=== PATIENT | male | born 2005 | race Caucasian/White ===

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

== ENCOUNTER 2023-07-08 05:17 | Inpatient (IN) | payer OTHER ==
[2023-07-08] VITALS (208 sets, daily range): BP systolic 99–124; BP diastolic 61–90; PULSE 73–94; TEMP 97.7–98.6; O2SAT 83–100
[~2023-07-08] VITALS: Ht 182.9 cm; Wt 76.8 kg
[~2023-07-08 05:17] MED LIST changes: +AMOXICILLIN 50500 MG PO; +AMOXICILLIN 8751 TAB PO; +NORCO 325 MG-51 TAB PO
[2023-07-08 05:30] LABS: BASO % 0.3 % (0.0-2.0); EOS % 0.6 % (0.0-4.0); GRAN # 3.5 K/mm3 (1.4-6.5); GRAN % 49.1 % (42.2-75.2); HEMATOCRIT 43.8 % (36.0-47.0); HEMOGLOBIN 14.9 g/dl (12.5-16.1); LYMPH % 42.4 % (20.0-51.0); MEAN CELL VOLUME 92 fl (80.0-95.0); MEAN CORPUSCULAR HEMOGLOBIN 31 pg (26-32); MEAN CORPUSCULAR HGB CONC 34 g/dl (33.0-37.0); MEAN PLATELET VOLUME 9.6 fl (7.4-10.4); MONO # 0.5 K/mm3 (0.1-0.6); MONO % 6.9 % (1.7-9.3); PLATELET COUNT 235 K/mm3 (130-400); RED BLOOD COUNT 4.76 M/mm3 (4.20-5.60)
[2023-07-08] MEDS ORDERED: Furosemide 100 MG/10 ML VIAL IV ONE (05:30)
[2023-07-08] MEDS ORDERED: methylPREDNISolone Sod Succ 125 MG/2 ML VIAL IV ONE (05:30)
[2023-07-08 05:42] LABS: ARTERIAL BLD GAS TCO2 CT 24.5; ARTERIAL BLOOD GAS BASE EXCESS -4.4 (-2-2); ARTERIAL BLOOD GAS HCO3 22.9 meq/L (22-26); ARTERIAL BLOOD GAS PCO2 50.3 mmHg (35-45); ARTERIAL BLOOD GAS PO2 51.4 mmHg (80-100); ARTERIAL BLOOD GAS pH 7.28 (7.35-7.45)
[2023-07-08] MEDS ORDERED: Ondansetron 4 MG/2 ML VIAL IV ONE (05:45)
[2023-07-08] MEDS ORDERED: Naloxone 0.4 MG/ML VIAL IV ONE (05:45)
[2023-07-08 05:47] LABS: ACETAMINOPHEN < 7.0 ug/mL (10-30); ALANINE AMINOTRANSFERASE 33 U/L (0-55); ALBUMIN 3.8 gm/dL (3.5-5.0); ALKALINE PHOSPHATASE 77 U/L (40-150); ANION GAP 12 mmol/L (7-16); AST,SGOT 34 U/L (5-34); BILIRUBIN,TOTAL 0.3 mg/dL (0.2-1.2); BLOOD UREA NITROGEN 11 mg/dL (8-21); CALCIUM 8.7 mg/dL (8.4-10.2); CARBON DIOXIDE 22 mmol/L (22-29); CHLORIDE 106 mmol/L (98-107); CREATININE, serum 1.14 mg/dL (0.72-1.25); GLUCOSE 239 mg/dL (70-99); POTASSIUM 3.7 mmol/L (3.5-4.5); SODIUM 140 mmol/L (136-145); TOTAL PROTEIN 6.8 gm/dL (6.2-8.1)
[2023-07-08 05:49] LABS: ALCOHOL(ethanol),MEDICAL < 10 mg/dL (0-10); SALICYLATE < 5.0 mg/dL (15.0-30.0)
[2023-07-08 05:55] LABS: TROPONIN-I < 0.010 ng/mL (0.00-0.033)
--- NOTE | 2023-07-08 06:12 | NUR ---
RT CALLED TO ER TO EVALUATE PT AT 0522. RT PLACED PT ON BIPAP, 08/10 R 20 100%. ABG OBTAINED. RT TO ASSIST RN TO CT. ORDERS TO OBTAIN ANOTHER ABG IN 30 MINUTES.
[2023-07-08 06:40] LABS: COLLECTION METHOD CLEAN CATCH
[2023-07-08 07:05] LABS: PH 5.5 (5.0-8.5); URINE APPEARANCE CLEAR (CLEAR/HAZY); URINE BLOOD NEGATIVE (NEGATIVE); URINE COLOR YELLOW (YELLOW); URINE GLUCOSE NEGATIVE (NEGATIVE); URINE KETONE NEGATIVE (NEGATIVE); URINE NITRATE NEGATIVE (NEGATIVE); URINE PROTEIN(semi-quant) NEGATIVE (NEGATIVE); URINE UROBILINOGEN 0.2 E.U/dL (0.2-1.0)
[2023-07-08 07:17] LABS: TRICYCLIC ANTIDEPRESS URINE NEGATIVE (NEGATIVE)
[2023-07-08] MEDS ORDERED: Albuterol/Ipratropium 3 MG-0.5 MG/3 ML Neb Soln IH PRN (09:30)
--- NOTE | 2023-07-08 09:30 | NUR ---
polysilicon preparation worker spoke with Officer Love who reports pt will remain and is currently in police custody. SW will follow for any needs or changes in status. Discharge Plan: return to snf
--- NOTE | 2023-07-08 09:36 | NUR ---
HEAD TO TOE ASSESSMENT COMPLETED. PATIENT IS IN POLICE CUSTODY AND HAS SUBASSEMBLY SUPERVISOR AT BEDSIDE WITH HIM. PATIENT'S ANKLES ARE SHACKLED AND HAS A BELLY CUFF WITH ONE ARM ATTACHED. PATIENT REMAINS ON BIPAP. PATIENT WAKES TO VERBAL STIMULI AND IS ABLE TO ANSWER QUESTIONS APPROPRIATELY. HEART SOUNDS REGULAR WITH S1 AND S2 NOTED. LUNG SOUNDS ARE DIMINISHED THROUGHOUT WITH COARSE CRACKLES NOTED. PULSES PRESENT BILATERALLY IN UPPER AND LOWER EXTREMITIES. PATIENT IS ABLE TO VOID USING THE URINAL. NO PAIN NOTED AT THIS TIME. BED IN A LOW POSITION. CALL LIGHT WITHIN REACH. SUBASSEMBLY SUPERVISOR AT BEDSIDE AND ALSO EDUCATED RUBBER PROCESS HAND LIGHT.
[2023-07-08 09:39] LABS: ARTERIAL BLD GAS O2 SATURATION 98.2 % (92-100); ARTERIAL BLD GAS TCO2 CT 24.4; ARTERIAL BLOOD GAS BASE EXCESS -1.9 (-2-2); ARTERIAL BLOOD GAS HCO3 23.2 meq/L (22-26); ARTERIAL BLOOD GAS PCO2 40.7 mmHg (35-45); ARTERIAL BLOOD GAS pH 7.37 (7.35-7.45)
[2023-07-08 09:41] LABS: ARTERIAL BLOOD GAS PO2 128.8 mmHg (80-100)
[2023-07-08] MEDS ORDERED: Famotidine 20 MG TAB PO SCH (09:44)
[2023-07-08] MEDS ORDERED: Ondansetron 4 MG/2 ML VIAL IV PRN (09:45)
[2023-07-08] MEDS ORDERED: Acetaminophen 500 MG TAB PO PRN (09:45)
--- NOTE | 2023-07-08 09:52 | NUR ---
ABG DRAWN BIPAP TAKEN OFF PLACED ON 2L/NC
[2023-07-08] MEDS ORDERED: dexAMETHasone 10 MG/ML VIAL IV SCH (12:00)
[2023-07-08] MEDS ORDERED: Albuterol/Ipratropium 3 MG-0.5 MG/3 ML Neb Soln IH SCH (14:00)
--- NOTE | 2023-07-08 18:58 | NUR ---
PATIENT HAS RESTING PEACEFULLY IN BED ALL DAY. MARKETING AND PROMOTIONS MANAGER ASSISTS PATIENT WITH UTILIZING URINAL. PATIENT CURRENTLY ON 4L NC AND SATTING 98%. PATIENT ATE DINNER AND TOOK MEDICATIONS PER EMAR. MARKETING AND PROMOTIONS MANAGER REMAINS AT BEDSIDE. PATIENT REMAINS SHACKLED AT THE ANKLES AND AN ARM CUFFED TO THE BED. BED IN A LOW POSITION. CALL LIGHT WIHTIN REACH.
[2023-07-09] VITALS (20 sets, daily range): BP systolic 109–118; BP diastolic 50–60; PULSE 81–87; TEMP 97.9–98; O2SAT 91–97
[2023-07-09 04:43] LABS: BASO % 0.1 % (0.0-2.0); GRAN # 10.7 K/mm3 (1.4-6.5); GRAN % 83.7 % (42.2-75.2); HEMATOCRIT 37.9 % (36.0-47.0); LYMPH # 0.9 K/mm3 (1.2-3.4); LYMPH % 7.3 % (20.0-51.0); MEAN CELL VOLUME 86 fl (80.0-95.0); MEAN CORPUSCULAR HEMOGLOBIN 32 pg (26-32); MEAN CORPUSCULAR HGB CONC 37 g/dl (33.0-37.0); MEAN PLATELET VOLUME 9.9 fl (7.4-10.4); MONO # 1.1 K/mm3 (0.1-0.6); MONO % 8.6 % (1.7-9.3); PLATELET COUNT 244 K/mm3 (130-400); RED BLOOD COUNT 4.43 M/mm3 (4.20-5.60); REDCELL DISTRIBUTION WIDTH-CV 12.1 % (11.5-14.5)
[2023-07-09 04:52] LABS: CALCIUM 9.2 mg/dL (8.4-10.2); CREATININE, serum 0.87 mg/dL (0.72-1.25); MAGNESIUM 1.9 mg/dL (1.7-2.2)
--- NOTE | 2023-07-09 05:44 | NUR ---
PT HAS HAD UNEVENTFUL NIGHT. HAS BEEN SLEEPING BETWEEN DISTURBANCES. HAS BEEN ON ROOM AIR FOR MAJORITY OF THE NIGHT WITH 02 SATS IN THE 91%-95% RANGE. ALL OTHER VITALS WNL AND STABLE. FREELANCE INTERPRETER/TRANSLATOR HAS BEEN AT BEDSIDE THE WHOLE NIGHT. PLAN OF CARE ONGOING.
--- NOTE | 2023-07-09 07:00 | NUR ---
Report received from ALLYN Duarte. Pt had uneventul cage shift manager. Pt on RA. No IV gtts infusing at this time. Pt has CO at bedside. Pt has one leg cuffed to bed and around waist. Pt resting with eyes closed. Call light within reach. Will continue with POC.
[2023-07-09] MEDS ORDERED: AMOXICILLIN 8751 TAB PO (11:25)
--- NOTE | 2023-07-09 12:45 | NUR ---
Discharge instructions provided to pt and officer in room with patient. All paperwork handed to officer in room including printed script. Copy of script made and placed on chart. INT x2 discontinued. Pt escorted out in cuffs by this RN and officer to waiting vehicle.
== END 2023-07-09 12:45 | DRG 917 ==
LOC: COL.ER 05:17 → ICU 07:16
PROVIDERS: Emergency Medicine; Internal Medicine; ADMIT Internal Medicine
PROC: 5A0935A Assistance with Respiratory Ventilation, Less than 24 Consecutive Hours, High Flow/Velocity Cannula (ICD-10-PCS; principal; 2023-07-08)
PROC: 5A09357 Assistance with Respiratory Ventilation, Less than 24 Consecutive Hours, Continuous Positive Airway Pressure (ICD-10-PCS; 2023-07-08)
DX: T40.411A Poisoning by fentanyl or fentanyl analogs, accidental (unintentional), initial encounter (principal); J69.0 Pneumonitis due to inhalation of food and vomit; J96.01 Acute respiratory failure with hypoxia; Z20.822 Contact with and (suspected) exposure to COVID-19; J45.909 Unspecified asthma, uncomplicated; Z91.018 Allergy to other foods
CPT/HCPCS: J0737; J1100; J1940; J2310; J2405; J2930